=== PATIENT | male | born 1980 | race Caucasian/White ===

== ENCOUNTER 2017-04-01 17:28 | Emergency (ER) | payer SELFPAY ==
--- NOTE | 2017-04-01 17:52 | Emergency Department Record ---
History of Present Illness - General Chief Complaint: Laceration(s) Stated Complaint: LACERATION RIGHT HAND Time Seen by Provider: 04/01/17 17:47 Source: Patient Mode of Arrival: Ambulatory Limitations: No limitations - History of Present Illness Initial Commments: The patient cut his R hand over his R dorsal 2nd MCP joint about 3 hours ago when he banged it on his handle bars riding his Quad. He denies any bony pain, numbness, or tingling. His Td is UTD. Onset/Timin -: Hour(s) Place: Home Context: Accidental - Related Data Hx Tetanus Toxoid Vaccination: Yes Year of Tetanus Vaccination: 2012 Patient Tetanus UTD (within 5 yrs): Yes Previous Rx's Medication Instructions Recorded Cephalexin [Keflex] 500 mg PO QID #20 cap 04/01/17 Allergies Allergy/AdvReac Type Severity Reaction Status Date / Time No Known Drug Allergies Allergy Verified 04/01/17 17:37 Travel Screening - Travel/Exposure Within Last 30 Days Have you traveled within the last 30 days?: No - Travel/Exposure Within Last Year Have you traveled outside the [place] in the last year?: No - Additonal Travel Details Have you been exposed to anyone with a communicable illness?: No - Travel Symptoms Symptom Screening: None Past Medical History - SOCIAL HISTORY Smoking Status: Never smoker Alcohol Use: Occasional Drug Use: Occasional Drug Use Detail:: Marijuana - RESPIRATORY Hx Respiratory Disorders: No - CARDIOVASCULAR Hx Cardio Disorders: No - NEURO Hx Neuro Disorders: No - GI Hx GI Disorders: No - Hx Genitourinary Disorders: No - ENDOCRINE Hx Endocrine Disorders: No - MUSCULOSKELETAL Hx Musculoskeletal Disorders: No - PSYCH Hx Psych Problems: No - HEMATOLOGY/ONCOLOGY Hx Hematology/Oncology Disorders: No Family Medical History Any Significant Family History?: Yes Family Hx Comment (NOT TO BE USED IN PLACE OF ITEMS BELOW): mom has clotting disorder Hx Cancer: Father, Grandparents Physical Exam - General General Appearance: Alert, Cooperative, No acute distress - Extremities Extremities exam: Full ROM, Normal capillary refill. negative: Normal inspection (There is a 1 cm laceration over the lateral dorsal R 2nd MCP joint. There is no bony tenderness and the fingers have full ROM with no pain.), Joint swelling, Tenderness Image of Hand: 1 - 1.2 cm lac. Course Vital Signs 04/01/17 17:38 Temperature 99 F Pulse Rate 81 Respiratory 16 Rate Blood Pressure 133/101 Pulse Ox 98 - Reevaluation(s) Reevaluation #1: Procedure note: The R hand lac was cleansed sterile fashion and anesth. with 1.5 cc's Lido 1%. The wound edges were minimally debrided and the wound was lavaged with sterile saline. No tendon or FB was visualized. The wound was closed with 4 4.0 nylon sutures. There were no complications. 04/01/17 18:14 Disposition Disposition: Discharge Clinical Impression: Laceration of hand Qualifiers: Encounter type: initial encounter Foreign body presence: without foreign body Laterality: right Qualified Code(s): S61.411A - Laceration without foreign body of right hand, initial encounter Disposition: Home, Self-Care Condition: (2) Stable Instructions: Laceration (ED) Additional Instructions: Keep dry for 2 days then no soaking or swimming. Watch for signs of infection. Take the Keflex as directed. Have the sutures removed in 10 days. Please see your PCP for your elevated blood pressure. Prescriptions: Cephalexin [Keflex] 500 mg PO QID #20 cap Forms: Patient Portal Access Time of Disposition: 18:16 Quality - Quality Measures Quality Measures: N/A - Blood Pressure Screening View Details: Yes Does Patient Have Any of the Following: No Blood Pressure Classification: Hypertensive Reading Systolic Measurement: 157 Diastolic Measurement: 106 Screening for High Blood Pressure: < First Hypertensive BP, F/U Documented > [ [id number]] First Hypertensive Follow-up Interventions: Referral to alternative/primary care provider.
== END 2017-04-01 18:33 | disposition home or self-care (01) ==
LOC: ER 17:28
DX: S61.411A Laceration without foreign body of right hand, initial encounter (principal); W22.8XXA Striking against or struck by other objects, initial encounter; Y92.009 Unspecified place in unspecified non-institutional (private) residence as the place of occurrence of the external cause
CPT/HCPCS: 12001; 99283